=== PATIENT | male | born 1970 | race Caucasian/White ===

== ENCOUNTER 2017-04-21 09:18 | Emergency (ER) | payer BC ==
--- NOTE | 2017-04-21 10:19 | EDM.PDOC ---
ED HPI GENERAL MEDICAL PROBLEM - General Chief Complaint: ENT Problem Stated Complaint: COUGH AND SINUS Time Seen by Provider: 04/21/17 10:00 - History of Present Illness INITIAL COMMENTS - FREE TEXT/NARRATIVE: HISTORY AND PHYSICAL: History of present illness: Patient is 47-year-old male who presents with a concern of cough congestion was 4 days into Levaquin prescription that was given to him for sinusitis. He also has a rash on his genital area that he thinks is consistent with PCP denies any sexual contacts or possible sexually transmitted disease. Review of systems: As per history of present illness and below otherwise all systems reviewed and negative. Past medical history: As per history of present illness and as reviewed below otherwise noncontributory. Surgical history: As per history of present illness and as reviewed below otherwise noncontributory. Social history: No reported history of drug or alcohol abuse. Family history: As per history of present illness and as reviewed below otherwise noncontributory. Physical exam: HEENT: Atraumatic, normocephalic, pupils reactive, negative for conjunctival pallor or scleral icterus, mucous membranes moist, throat clear, neck supple, nontender, trachea midline. Lungs: Clear to auscultation, breath sounds equal bilaterally, chest nontender. Heart: S1S2, regular, negative for clicks, rubs, or JVD. Abdomen: Soft, nondistended, nontender. Negative for masses or hepatosplenomegaly. Negative for costovertebral tenderness. Pelvis: Stable nontender. Genitourinary: Deferred. Rectal: Deferred. Extremities: Atraumatic, negative for cords or calf pain. Neurovascular unremarkable. Neuro: Awake, alert, oriented. Cranial nerves II through XII unremarkable. Cerebellum unremarkable. Motor and sensory unremarkable throughout. Exam nonfocal. Diagnostics: Sinus x-ray chest x-ray influenza screen Therapeutics: None Impression: #1 history of sinusitis #2 rule out cutaneous Sandra #3 pneumonitis Definitive disposition and diagnosis as appropriate pending reevaluation and review of above. Head Pain Score (Numeric/FACES): 2 - Related Data Allergies Allergy/AdvReac Type Severity Reaction Status Date / Time No Known Allergies Allergy Unverified 06/29/15 13:02 Past Medical History Cardiovascular History: Reports: Hypertension Respiratory History: Reports: Asthma Social & Family History - Family History Family Medical History: Noncontributory - Tobacco Use Smoking Status *Q: Never Smoker - Caffeine Use Caffeine Use: Reports: Coffee, Soda - Recreational Drug Use Recreational Drug Use: No ED ROS GENERAL - Review of Systems Review Of Systems: ROS reveals no pertinent complaints other than HPI. ED EXAM, GENERAL - Physical Exam Exam: See Below (See dictation) Course - Vital Signs Last Recorded V/S: Last Vital Signs Temp 36.1 C 04/21/17 09:39 Pulse 96 04/21/17 09:39 Resp 16 04/21/17 09:39 BP 157/74 H 04/21/17 09:39 Pulse Ox 96 04/21/17 09:39 - Orders/Labs/Meds Orders: Active Orders 24 hr Category Date Time Status Chest 2V [CR] Stat Exams 04/21/17 10:14 Ordered Sinus Comp Min 3V [CR] Stat Exams 04/21/17 09:51 Ordered INFLUENZA A+B AG SCREEN [RM] Stat Lab 04/21/17 10:14 Ordered Departure - Departure Time of Disposition: 10:18 Disposition: Home, Self-Care 01 Condition: Good Clinical Impression: History of sinusitis, Pneumonitis, Cutaneous candidiasis - Discharge Information Referrals: Jordan Conde MD [Primary Care Provider] - Additional Instructions: The following information is given to patients seen in the emergency department who are being discharged to home. This information is to outline your options for follow-up care. We provide all patients seen in our emergency department with a follow-up referral. The need for follow-up, as well as the timing and circumstances, are variable depending upon the specifics of your emergency department visit. If you don't have a primary care physician on staff, we will provide you with a referral. We always advise you to contact your personal physician following an emergency department visit to inform them of the circumstance of the visit and for follow-up with them and/or the need for any referrals to a consulting specialist. The emergency department will also refer you to a specialist when appropriate. This referral assures that you have the opportunity for followup care with a specialist. All of these measure are taken in an effort to provide you with optimal care, which includes your followup. Under all circumstances we always encourage you to contact your private physician who remains a resource for coordinating your care. When calling for followup care, please make the office aware that this follow-up is from your recent emergency room visit. If for any reason you are refused follow-up, please contact the [facility] emergency department at and asked to speak to the emergency department charge nurse. Continue Levaquin as previously prescribed Mycolog cream as directed push fluids Motrin/Tylenol as needed as discussed - My Orders Last 24 Hours: My Active Orders 04/21/17 09:51 Sinus Comp Min 3V [CR] Stat 04/21/17 10:14 Chest 2V [CR] Stat INFLUENZA A+B AG SCREEN [RM] Stat - Assessment/Plan Last 24 Hours: My Active Orders 04/21/17 09:51 Sinus Comp Min 3V [CR] Stat 04/21/17 10:14 Chest 2V [CR] Stat INFLUENZA A+B AG SCREEN [RM] Stat
--- NOTE | 2017-04-22 18:23 | CR ---
EXAM DATE: 04/21/17 PATIENT'S AGE: 47 Patient: BRY FOUNTAIN Facility: [place], [place] Site . Site : 1970 Study: XRay Chest [id number]/18/2018 10:50:30 AM Ordering Physician: Rosa Mcconnell Final Report: INDICATION: Cough and congestion. TECHNIQUE: PA and lateral chest x-ray. FINDINGS: Heart size normal. Lungs clear without infiltrate. Chest otherwise negative without acute disease. Dictated by Neel Gray MD @ Apr 21 2017 10:51AM (Electronic Signature) Report Signed by Proxy. CHIKA
--- NOTE | 2017-04-22 18:25 | CR ---
EXAM DATE: 04/21/17 PATIENT'S AGE: 47 Patient: BRY FOUNTAIN Facility: [place], [place] Site . Site : 1970 Study: XRay Sinus [id number]/18/2018 10:51:16 AM Ordering Physician: Doctor Zuniga Final Report: INDICATION: Sinus pressure for 4 days. History of sinus problems and surgery. TECHNIQUE: Three views paranasal sinuses. FINDINGS: Fluid and mucosal thickening in the frontal sinuses bilaterally greatest on the right. No air-fluid levels in the paranasal sinuses. Benign lucencies in the calvarium. Degenerate changes in the cervical facet joints. Remainder negative. Dictated by Neel Gray MD @ Apr 21 2017 10:53AM (Electronic Signature) Report Signed by Proxy. CHIKA
== END 2017-04-21 11:23 | disposition home or self-care (01) ==
LOC: MW.ED 09:18
DX: J18.9 Pneumonia, unspecified organism (principal); B37.2 Candidiasis of skin and nail; J32.9 Chronic sinusitis, unspecified; I10 Essential (primary) hypertension
CPT/HCPCS: 71046; 71046-26; 87804; 99283

== ENCOUNTER 2018-10-19 23:48 | Emergency (ER) | payer BC ==
--- NOTE | 2018-10-19 23:53 | EDM.PDOC ---
ED HPI GENERAL MEDICAL PROBLEM - General Stated Complaint: MED. CLEARANCE Time Seen by Provider: 10/19/18 23:50 - History of Present Illness INITIAL COMMENTS - FREE TEXT/NARRATIVE: HISTORY AND PHYSICAL: History of present illness: Patient 48-year-old white male in custody of law enforcement who presents for medical clearance patient denies any concern Review of systems: As per history of present illness and below otherwise all systems reviewed and negative. Past medical history: As per history of present illness and as reviewed below otherwise noncontributory. Surgical history: As per history of present illness and as reviewed below otherwise noncontributory. Social history: No reported history of drug or alcohol abuse. Family history: As per history of present illness and as reviewed below otherwise noncontributory. Physical exam: HEENT: Atraumatic, normocephalic, pupils reactive, negative for conjunctival pallor or scleral icterus, mucous membranes moist, throat clear, neck supple, nontender, trachea midline. Lungs: Clear to auscultation, breath sounds equal bilaterally, chest nontender. Heart: S1S2, regular, negative for clicks, rubs, or JVD. Abdomen: Soft, nondistended, nontender. Negative for masses or hepatosplenomegaly. Negative for costovertebral tenderness. Pelvis: Stable nontender. Genitourinary: Deferred. Rectal: Deferred. Extremities: Atraumatic, negative for cords or calf pain. Neurovascular unremarkable. Neuro: Awake, alert, oriented. Cranial nerves II through XII unremarkable. Cerebellum unremarkable. Motor and sensory unremarkable throughout. Exam nonfocal. Diagnostics: None Therapeutics: None Impression: Medical clearance for incarceration Definitive disposition and diagnosis as appropriate pending reevaluation and review of above. - Related Data Allergies Allergy/AdvReac Type Severity Reaction Status Date / Time No Known Allergies Allergy Verified 04/19/18 09:28 Home Meds: Home Meds Fluticasone/Salmeterol [Advair 250-50] 1 puff INH ASDIRECTED 04/19/18 [History] Lisinopril 20 mg PO DAILY 04/19/18 [History] Montelukast Sodium [Singulair] 4 mg PO DAILY 04/19/18 [History] Past Medical History HEENT History: Reports: None Cardiovascular History: Reports: Hypertension Respiratory History: Reports: Asthma Gastrointestinal History: Reports: None Genitourinary History: Reports: None Musculoskeletal History: Reports: None Neurological History: Reports: None Psychiatric History: Reports: None Endocrine/Metabolic History: Reports: None Hematologic History: Reports: None Immunologic History: Reports: None Oncologic (Cancer) History: Reports: None Dermatologic History: Reports: None - Past Surgical History Head Surgeries/Procedures: Reports: None HEENT Surgical History: Reports: Other (See Below) Other HEENT Surgeries/Procedures: sinus surgery Cardiovascular Surgical History: Reports: None Respiratory Surgical History: Reports: None GI Surgical History: Reports: None Male Surgical History: Reports: None Endocrine Surgical History: Reports: None Neurological Surgical History: Reports: None Musculoskeletal Surgical History: Reports: None Oncologic Surgical History: Reports: None Dermatological Surgical History: Reports: None Social & Family History - Family History Family Medical History: Noncontributory - Caffeine Use Caffeine Use: Reports: Coffee, Tea ED ROS GENERAL - Review of Systems Review Of Systems: ROS reveals no pertinent complaints other than HPI. ED EXAM, GENERAL - Physical Exam Exam: See Below (See dictation) Departure - Departure Time of Disposition: 23:53 Disposition: Home, Self-Care 01 Condition: Good Clinical Impression: Medical clearance for incarceration - Discharge Information Referrals: PCP,None [Primary Care Provider] - Additional Instructions: The following information is given to patients seen in the emergency department who are being discharged to home. This information is to outline your options for follow-up care. We provide all patients seen in our emergency department with a follow-up referral. The need for follow-up, as well as the timing and circumstances, are variable depending upon the specifics of your emergency department visit. If you don't have a primary care physician on staff, we will provide you with a referral. We always advise you to contact your personal physician following an emergency department visit to inform them of the circumstance of the visit and for follow-up with them and/or the need for any referrals to a consulting specialist. The emergency department will also refer you to a specialist when appropriate. This referral assures that you have the opportunity for followup care with a specialist. All of these measure are taken in an effort to provide you with optimal care, which includes your followup. Under all circumstances we always encourage you to contact your private physician who remains a resource for coordinating your care. When calling for followup care, please make the office aware that this follow-up is from your recent emergency room visit. If for any reason you are refused follow-up, please contact the [facility] emergency department at and asked to speak to the emergency department charge nurse. Follow-up primary medical doctor as needed as discussed return as needed as discussed
== END 2018-10-20 00:01 ==
LOC: MW.ED 23:48
DX: Z02.89 Encounter for other administrative examinations (principal); I10 Essential (primary) hypertension; J45.909 Unspecified asthma, uncomplicated; Z79.899 Other long term (current) drug therapy
CPT/HCPCS: 99282; 99283